=== PATIENT | male | born 1970 | race Caucasian/White ===

== ENCOUNTER 2017-10-17 03:39 | Inpatient (IN) | payer MEDICAID, OTHER ==
[~2017-10-17] VITALS: Ht 172.7 cm; Wt 62.2 kg
--- NOTE | 2017-10-17 03:45 | NUR ---
PT AA/O X4 COMPLAINING OF SOB X 2 WEEKS PROGRESSIVLEY GETTING WORSE. "I SMOKED MARIJUANA AND SLAMMED METH EARLIER TODAY." NASAL FLARING, ACCESSORY MUSCLE USE PRESENT. DIFFICULTY WITH 3 WORD SENTENCES. 88 PERCENT ON ROOM AIR. APPLICATION OF SIMPLE FACE MASK 6LPM. AWAITING MD ORDERS.
--- NOTE | 2017-10-17 03:52 | NUR ---
XRAY AT BEDSIDE
[2017-10-17] MEDS ORDERED: ALBUTEROL FS 2.5 MG/3 ML VIAL.NEB ONE (03:58)
[2017-10-17] MEDS ORDERED: FUROSEMIDE 40 MG/4 ML VIAL ONE (03:59)
[2017-10-17] MEDS ORDERED: FUROSEMIDE 40 MG/4 ML VIAL IV ONE (04:00)
[2017-10-17] MEDS ORDERED: IBUPROFEN 600 MG TABLET PO ONE ×2 (04:00)
[2017-10-17] MEDS ORDERED: ALBUTEROL FS 2.5 MG/3 ML VIAL.NEB CONTNEB ONE (04:00)
--- NOTE | 2017-10-17 04:01 | NUR ---
PT IS REC'ING A BREATHING TX.
[2017-10-17 04:16] LABS: ABG BASE EXCESS 3.4 mmol/L; ABG OXYGEN SATURATION 97.6 % (92.0-98.5); ABG PCO2 36.6 mmHg (35.0-45.0); ABG PH 7.483 (7.350-7.450); ABG PO2 107.5 mmHg (75.0-100.0); AaDO2 207.8 mmHg; COHb 1.4 % (0.5-1.5); MetHb 0.3 % (0.0-1.5); O2Hb 95.9 % (94.0-97.0); SITE, ABG Right Radial; VENT MODE, BG simple mask
[2017-10-17 04:27] LABS: CALCIUM, SERUM 7.5 mg/dL (8.5-10.1); CARBON DIOXIDE 29 mmol/L (21-32); CHLORIDE 103 mmol/L (98-107); CREATININE 0.7 mg/dL (0.6-1.3); GLUCOSE 121 mg/dL (74-106); POTASSIUM 3.5 mmol/L (3.5-5.1); SODIUM SERUM 136 mmol/L (136-145); UREA NITROGEN, BLOOD 10 mg/dL (7-18)
[2017-10-17 04:35] LABS: TROPONIN I < 0.017 ng/mL (0.00-0.056)
[2017-10-17 04:37] LABS: HEMATOCRIT 36 % (39-51); HEMOGLOBIN 12.3 g/dL (13.5-17.5); MEAN CORPUSCULAR HEMOGLOBIN 35 PG (26.0-33.0); MEAN CORPUSCULAR HGB CONC 34 g/dl (31.0-36.0); MEAN CORPUSCULAR VOLUME 104 fL (80-96); NEUTROPHILS % (AUTO) 53.2 % (43.0-81.0); PLATELET COUNT (AUTO) 151 /CMM (150-450); RDW COEFFICIENT OF VARIATION 17.2 (11.5-15.0)
[2017-10-17 04:38] LABS: BASOPHILS % (AUTO) 0.4 % (0.0-2.0); EOSINOPHILS % (AUTO) 2.5 % (0.0-6.0); LYMPHOCYTES % (AUTO) 30.4 % (20.0-44.0); MONOCYTES % (AUTO) 13.6 % (2.0-12.0); WHITE BLOOD COUNT (AUTO) 10.4 K/uL (4.3-11.0)
[2017-10-17 04:39] LABS: RED BLOOD CELL COUNT(AUTO) 3.51 MIL/uL (4.5-6.0)
[2017-10-17 04:40] LABS: INR 1.28 (0.87-1.13)
[2017-10-17 04:41] LABS: ALANINE AMINOTRANSFERASE 92 U/L (12-78); ALBUMIN 1.6 g/dL (3.4-5.0); ALKALINE PHOSPHATASE 119 U/L (46-116); ASPARTATE AMINOTRANSFERASE 121 U/L (15-37); B-TYPE NATRIURETIC PEPTIDE 134 PG/ML (0-125); BILIRUBIN,DIRECT 0.8 mg/dL (0.0-0.2); TOTAL PROTEIN, SERUM 6.7 g/dL (6.4-8.2)
--- NOTE | 2017-10-17 05:08 | NUR ---
PT PLACED ON NC AT 3LPM FROM SIMPLE FACE MASK AT 6LPM PER MD ORDERS. PT O2 SAT AT 95%
[2017-10-17] MEDS: CEFTRIAXONE 1GM BAG (ER ONLY) 1 GM/50 ML PIGGYBACK IV ONE ×2 (05:43→06:00)
[2017-10-17] MEDS ORDERED: LEVOFLOXACIN 750 MG /D5W 150ML 150 ML IV ONE (05:52)
[2017-10-17] MEDS ORDERED: CEFTRIAXONE 1GM BAG (ER ONLY) 50 ML IV ONE (05:52)
[2017-10-17] MEDS ORDERED: LEVOFLOXACIN 750 MG /D5W 150ML PIGGYBACK IV ONE (06:00)
--- NOTE | 2017-10-17 06:18 | NUR ---
REPORT GIVEN TO MOIRA GREGG.
[2017-10-17] MEDS ORDERED: ONDANSETRON HCL/PF 4 MG/2 ML VIAL IVP PRN (07:00)
--- NOTE | 2017-10-17 07:30 | NUR ---
SCOOP DRIVER OPENING NOTES RECEIVED REPORT FROM ECHO TECH NURSE. PT IS A NEW ADMISSION FROM ER VIA GURNEY. PT IS A/O X3, AFEBRILE. PT IS CURRENTLY HAVING SOB. PUT PT ON O2 @3/MIN VIA NC, SATURATING 94%. PUPILS ARE REACTIVE TO LIGHT. BILATERAL HAND LOCAL BULK DRIVER ARE STRONG AND EQUAL. US GUIDED THORACENTESIS HAS BEEN ORDERS FOR PLEURAL EFFUSION, WILL CONTINUE TO FOLLOW UP. ABDOMEN IS ROUND, SOFT AND NONDISTENDED. DENIES ANY BLADDER DISCOMFORT. IV SITE INTACT, FLUSHED. NO INFILTRATION NOTED. DRESSING KEPT CLEAN AND DRY. SAFETY MEASURES ARE IN PLACE. INSTRUCTED PT TO USE CALL LIGHT WHEN ASSISTANCE IS NEEDED, CALL LIGHT IS LEFT WITHIN REACH.
[2017-10-17 08:00] VITALS: BP 124/72
[2017-10-17] MEDS ORDERED: Potassium Chloride 20 MEQ in IV D5/0.45 NACL 1,000 ML IV PRN (08:00)
[2017-10-17] MEDS ORDERED: LIDOCAINE HCL/PF 1% 30 ML SDV ONE (08:40)
--- NOTE | 2017-10-17 08:45 | NUR ---
MIXER DIAMOND POWDER NOTES US GUIDED RIGHT THORACENTESIS DONE W/ 1.5L OUT. PT TOLERATED PROCEDURE WELL. STAT CHEST XRAY ORDERED.
[2017-10-17] MEDS: PANTOPRAZOLE 40 MG VIAL IV SCH (09:50)
--- NOTE | 2017-10-17 11:24 | NUR ---
Social service consult requested by JEANNETTE Hu for drug use. Pt. is a 47 year old male who was admitted to [facility] for pleural effusion. SW met with pt. bedside. Pt. is alert and oriented x 4. Pt. appeared tired but was cooperative with SW during the assessment. Pt. states he lives with his landlord [place] [address] [address] in [place]. [place] Pt's emergency contact is Madelaine Adler who can be reached at . Pt. is unemployed and receives [employer] and food stamps monthly. Pt. states he used methamphetamines two days ago because he wanted to go and get his pills but had no energy to do so and took the drug. Pt. states he had not used methamphetamines in a very long time and regrets using it. Pt. does use marijuana at times. Pt. denies drinking alcohol. Pt. declined drug treatment referrals the SW was offering. No other social service needs are requested at this time. SW is available, if needed.
[2017-10-17 12:00] VITALS: BP 112/68
--- NOTE | 2017-10-17 13:15 | NUR ---
MS RN NOTES US GUIDED PARACENTESIS WAS ORDERED. PT WAS PREPPED BUT UPON ULTRASOUND, THERE IS NOT ENOUGH FLUID TO REMOVE. DR. ALEXANDER MADE AWARE.
--- NOTE | 2017-10-17 14:20 | NUR ---
PACKING LINE WORKER NOTES D/C IV FLUIDS PER DR. ALEXANDER.
[2017-10-17 16:00] VITALS: BP 108/74
--- NOTE | 2017-10-17 18:34 | NUR ---
DIGITAL PRODUCT MANAGER CLOSING NOTES ALL DUE MEDS GIVEN, NEEDS MET AND ANTICIPATED. PT REMAINS A/O X3-4, AFEBRILE. RESPIRATIONS ARE EVEN AND UNLABORED. DENIES ANY PAIN AT THIS TIME, NO C/O N/V. TOLERATING O2 @3L/MIN VIA NC, SATURATING AT 93%. IV SITE INTACT, NO INFILTRATION NOTED. DRESSING KEPT CLEAN AND DRY. S/P THORACENTESIS, NO S/SX OF INFECTION TO SITE, DRESSING KEPT CLEAN AND DRY. INSTRUCTED PT TO USE CALL LIGHT WHEN ASSISTANCE IS NEEDED, CALL LIGHT IS LEFT WITHIN REACH. WILL SAFETY MEASURES ARE IN PLACE. WILL ENDORSE TO NEXT SHIFT FOR CONTINUITY OF CARE.
--- NOTE | 2017-10-17 19:20 | NUR ---
RN NOTES RECEIVED PT AWAKE, ON HIGH FOWLERS POSITION WITH O2 INHALATION AT 3LPM VIA NC AND TOLERATED WELL. PT ALERT AND ORIENTED X4, DENIES ANY PAIN AND DISCOMFORT THIS TIME. IV ACCESS ON FIGHT FOREARM PATENT AND INTACT. NOTED WITH ABDOMINAL DISTENTION AND EDEMA ON BLE. SAFETY MEASURES AND FALL PRECAUTION OBSERVED. WILL CONTINUE TO MONITOR PT.
[2017-10-17 20:00] VITALS: BP 120/81
[2017-10-17] MEDS: ALBUTEROL HALF STRENGTH 1.25 MG/3 ML VIAL.NEB NEB PRN (21:05)
[2017-10-17] MEDS: IPRATROPIUM NEB FS 0.5 MG/2.5 ML AMPUL.NEB NEB PRN (21:05)
[2017-10-17] MEDS: MORPHINE SULFATE INJ 2 MG/ML DISP.SYRIN IV PRN (21:09)
--- NOTE | 2017-10-17 21:09 | NUR ---
RN NOTES PT COMPLAIS OF SEVERE ABDOMINAL PAIN 01/10, MORPHINE GIVEN IV. WILL CONTINUE TO MONITOR PT.
[2017-10-17 22:00] VITALS: BP 120/81
[2017-10-18] VITALS: BP 134/83
[2017-10-18 04:16] VITALS: BP 121/80
[2017-10-18 06:20] LABS: BASOPHILS # (AUTO) 0.1 /CMM (0.0-0.2); EOSINOPHILS % (AUTO) 3.9 % (0.0-6.0); HEMATOCRIT 37 % (39-51); HEMOGLOBIN 12.7 g/dL (13.5-17.5); LYMPHOCYTES # (AUTO) 1.9 /CMM (0.8-4.8); LYMPHOCYTES % (AUTO) 26.7 % (20.0-44.0); MEAN CORPUSCULAR HEMOGLOBIN 35 PG (26.0-33.0); MEAN CORPUSCULAR HGB CONC 35 g/dl (31.0-36.0); MEAN CORPUSCULAR VOLUME 101 fL (80-96); MONOCYTES # (AUTO) 0.9 /CMM (0.1-1.30); MONOCYTES % (AUTO) 13.2 % (2.0-12.0); NEUTROPHILS # (AUTO) 3.8 /CMM (1.8-8.9); NEUTROPHILS % (AUTO) 55.2 % (43.0-81.0); PLATELET COUNT (AUTO) 125 /CMM (150-450); RDW COEFFICIENT OF VARIATION 15.9 (11.5-15.0); RED BLOOD CELL COUNT(AUTO) 3.62 MIL/uL (4.5-6.0)
--- NOTE | 2017-10-18 06:51 | NUR ---
RN NOTES PT SLEPT WELL OVERNIGHT, WITH O2 INHALATION AT 3LPM VIA NC AND TOLERATED WELL. TELE MONITOR READS SINUS RHYTHM WITH HEART RATE AT 72. VITAL SIGNS TAKEN ONCE AT 2000, PT DOESN'T WANT TO BE DISTURBED WHILE SLEEPING, REFUSED VITALS TO BE TAKEN AT 2400 AND 0400. PAIN CONTROLLED WITH CURRENT REGIMEN. SAFETY MEASURES AND FALL PRECAUTION OBSERVED. ALL NEEDS MET. WILL ENDORSE TO MORNING RN FOR CONTINUITY OF CARE.
[2017-10-18 07:06] LABS: CALCIUM, SERUM 7.2 mg/dL (8.5-10.1)
[2017-10-18 07:15] LABS: CREATININE 0.6 mg/dL (0.6-1.3)
--- NOTE | 2017-10-18 07:30 | NUR ---
DINING CHAIR SEAT CUSHION TRIMMER OPENING NOTE RECEIVED PATIENT IN BED, SLEEPING, EASILY AROUSED WITH VERBAL STIMULI, ORIENTED X4. ON 2 L O2 VIA NC. TOLERATING WELL. IN NO APPARENT DISTRESS OR DISCOMFORT AT THIS TIME, REPORTS MILD PAIN WHEN COUGHING BUT REFUSED PAIN MEDICATIONS FOR NOW UNTIL THE PAIN IS NOT TOLERABLE. PATIENT ON TELE MONITORING WITH SINUS RHYTHM HR OF 72. PATIENT HAS BATHROOM PRIVILEGES WITH ASSISTANCE. RIGHT FA IVC 18G SL. PATENT AND INTACT. PATIENT KEPT CLEAN AND COMFORTABLE, ALL NEEDS ATTENDED, SAFETY MEASURES IN PLACE, BED IN LOW LOCKED POSITION, SIDE RAILS UP X2, CALL LIGHT WITHIN EASY REACH. WILL CONTINUE TO MONITOR.
[2017-10-18 08:00] VITALS: BP 124/80
[2017-10-18] MEDS: PANTOPRAZOLE 40 MG VIAL IV SCH (09:28)
[2017-10-18] MEDS: MORPHINE SULFATE INJ 2 MG/ML DISP.SYRIN IV PRN ×3 (09:29→23:32)
[2017-10-18] MEDS ORDERED: OMEP20TA20 PO (09:33)
[2017-10-18] MEDS ORDERED: FURO-145 PO (09:33)
[2017-10-18] MEDS ORDERED: FUROSEMIDE 40 MG/4 ML VIAL IV SCH (10:30)
[2017-10-18] MEDS: FUROSEMIDE 40 MG/4 ML VIAL IV SCH (11:24)
[2017-10-18 16:00] VITALS: BP 120/88
[2017-10-18] MEDS: ALBUTEROL HALF STRENGTH 1.25 MG/3 ML VIAL.NEB NEB PRN ×2 (16:26→20:34)
--- NOTE | 2017-10-18 19:01 | NUR ---
MS RN CLOSING NOTE PATIENT IN BED, SLEEPING, EASILY AROUSED WITH VERBAL STIMULI, ORIENTED X4. ON 2 L O2 VIA NC. TOLERATING WELL. IN NO APPARENT DISTRESS OR DISCOMFORT AT THIS TIME, RESPIRATIONS EVEN AND UNLABORED. ABLE TO VERBALIZE NEEDS. PATIENT ON MEDSURG STATUS, PATIENT HAS BATHROOM PRIVILEGES WITH ASSISTANCE. RIGHT FA IVC 18G SL. PATENT AND INTACT. PATIENT KEPT CLEAN AND COMFORTABLE, PAIN CONTROLLED WITH PAIN MEDICATIONS. ALL NEEDS ATTENDED, SAFETY MEASURES IN PLACE, BED IN LOW LOCKED POSITION, SIDE RAILS UP X2, CALL LIGHT WITHIN EASY REACH. WILL ENDORSE TO PM NURSE FOR STEFFI.
[2017-10-18 20:00] VITALS: BP 118/77
[2017-10-18] MEDS: IPRATROPIUM NEB FS 0.5 MG/2.5 ML AMPUL.NEB NEB PRN (20:34)
--- NOTE | 2017-10-18 20:34 | NUR ---
MS FILIBERTO INITIAL NOTES RECEIVED PT SLEEPING COMFORTABLY IN BED , BUT AROUSE TO TOUCH. DENIES ANY PAIN OR ANY DISCOMFORT . NO SIGNS OF ANY ACUTE DISTRESS .SKIN WARM AND DRY TO TOUCH. KEPT HIM WARM AND COMFORTABLE AT ALL TIMES. PLACE CALL LIGHT AT REACH. WILL CONTINUE TO MONITOR.
[2017-10-18] MEDS: MUPIROCIN OINT 2% 22 GM TUBE SCH (22:11)
[2017-10-19 06:22] LABS: BASOPHILS % (AUTO) 0.3 % (0.0-2.0); EOSINOPHILS % (AUTO) 4.2 % (0.0-6.0); HEMATOCRIT 36 % (39-51); HEMOGLOBIN 12.2 g/dL (13.5-17.5); LYMPHOCYTES # (AUTO) 2.3 /CMM (0.8-4.8); LYMPHOCYTES % (AUTO) 31.3 % (20.0-44.0); MEAN CORPUSCULAR HEMOGLOBIN 36 PG (26.0-33.0); MEAN CORPUSCULAR HGB CONC 34 g/dl (31.0-36.0); MEAN CORPUSCULAR VOLUME 104 fL (80-96); MONOCYTES # (AUTO) 0.9 /CMM (0.1-1.30); MONOCYTES % (AUTO) 12.5 % (2.0-12.0); NEUTROPHILS # (AUTO) 3.8 /CMM (1.8-8.9); NEUTROPHILS % (AUTO) 51.7 % (43.0-81.0); PLATELET COUNT (AUTO) 140 /CMM (150-450); RDW COEFFICIENT OF VARIATION 16.6 (11.5-15.0); RED BLOOD CELL COUNT(AUTO) 3.42 MIL/uL (4.5-6.0); WHITE BLOOD COUNT (AUTO) 7.4 K/uL (4.3-11.0)
[2017-10-19 06:44] LABS: CALCIUM, SERUM 7.1 mg/dL (8.5-10.1); CREATININE 0.6 mg/dL (0.6-1.3); POTASSIUM 4.1 mmol/L (3.5-5.1)
--- NOTE | 2017-10-19 07:30 | NUR ---
MS WELDER APPRENTICE GAS CLOSING NOTES PT RESTING COMFORTABLY IN BED WITHOUT ANY ACUTE DISTRESS NOTED. STABLE JC THE NIGHT AND SLEPT WELL. RESPIRATION EVEN AND NON-LABORED . ALL NEEDS MET. DENIES ANY PAIN OR ANY DISCOMFORT. KEPT HIM WARM AND COMFORTABLE AT ALL TIMES. WILL CONTINUE MONITORING ENDORSE TO AM NURSE FOR CONTINUITY OF CARE.
[2017-10-19 08:00] VITALS: BP 115/77
--- NOTE | 2017-10-19 08:00 | NUR ---
MS RN OPENING NOTES Received patient awake on bed in high Schilling's position with O2 inhalation via nasal cannula @ 2LPM saturation @ 94%. A/O x4, ambulatory independently, with toilet priviledges. With IV line @ RFA G18 SL patent and intact without s/sx of infection noted. With complain of abdominal pain 09/10.V/S T-98.1F, ID-80bpm, RR-18cpm, BP-115/77mmHg. Administered Morphine as ordered, instructed patient to reposition self q 2h while awake and to do diversional activities for pain. Kept clean, dry and comfortable. All needs attended. Call light within easy reach. Will continue to monitor.
[2017-10-19] MEDS: MORPHINE SULFATE INJ 2 MG/ML DISP.SYRIN IV PRN ×3 (08:01→17:33)
[2017-10-19] MEDS: FUROSEMIDE 40 MG/4 ML VIAL IV SCH (08:02)
[2017-10-19] MEDS: PANTOPRAZOLE 40 MG VIAL IV SCH (08:02)
[2017-10-19] MEDS: MUPIROCIN OINT 2% 22 GM TUBE SCH ×2 (09:03→21:43)
--- NOTE | 2017-10-19 12:30 | NUR ---
MS RN Notes 1230H Patient complained of lower abdominal pain 11/10. Repositioned patient, due meds given as order.
[2017-10-19 16:00] VITALS: BP 98/62
--- NOTE | 2017-10-19 17:55 | NUR ---
MS RN Notes 1730H Patient claimed to have a stabbing pain on his lower abdomen and complaint of dyspnea. Noted with shallow respiration, @22cpm, O2 nasal cannula not in place. Assisted patient to reposition comfortably to Schilling's position. Due pain meds given as ordered. Secured O2 nasal cannula. Patient still claimed difficult to breath, RT notified over the phone - coming to administer due meds as ordered.
[2017-10-19] MEDS: IPRATROPIUM NEB FS 0.5 MG/2.5 ML AMPUL.NEB NEB PRN (17:59)
[2017-10-19] MEDS: ALBUTEROL HALF STRENGTH 1.25 MG/3 ML VIAL.NEB NEB PRN (17:59)
--- NOTE | 2017-10-19 18:45 | NUR ---
MS RN CLOSING NOTES Patient is asleep on bed in Schilling's position with O2 inhalation via nasal cannula @ 2LPM saturating at 98%. With patent IV line @RFA G#18 SL. Patient was medicated for pain and breathing treatment for SOB/dyspnea administered by RT. Patient was able to sleep well of at least 4hrs after each pain med given as ordered. All patient's needs were attended and anticipated. No new complaints made at this time. Endorsed to the next shift for continuity of care.
--- NOTE | 2017-10-19 19:30 | NUR ---
MS NET APPLICATION SUPPORT SPECIALIST INITIAL NOTES RECEIVED REPORT FROM AM NURSE SHAYNE AND CHECKED THE PT . HE'S RESTING AT THIS TIME BUT AROUSE TO TOUCH, NO SOB NOTED WITH O2 AT 2LITERS VIA NC. BREATHING EVEN AND NON-LABORED NOT IN AND ANY ACUTE DISTRESS NOTED. KEPT HIM WARM AND COMFORTABLE AT ALL TIMES. DENIES ANY PAIN AT THIS TIME. ON CONTACT ISOLATION IMPLEMENTED AND OBSERVED. WILL CONTINUE MONITORING. PLACE CALL LIGHT AT REACH.
[2017-10-19 20:00] VITALS: BP 123/68
--- NOTE | 2017-10-20 00:01 | NUR ---
MS RN NOTES PAIN MANAGEMENT C/O ABDOMINAL PAIN 8/10 ON PAIN SCALE,MORPHINE 2MG IVP GIVEN ORDERED FOR PAIN MANAGEMENT.WILL MONITOR FOR RELIEF.
--- NOTE | 2017-10-20 06:57 | NUR ---
MS ASSOCIATE FACULTY CLOSING NOTES PATIENT BACK TO REST AFTER SPONGE BATH RENDERED, NO SIGNS OF ANY ACUTE DISTRESS NOTE. SLEPT WELL AND STABLE JC THE NIGHT. KEPT HIM WARM AND COMFORTABLE AT ALL TIMES. ON ISOLATION PRECAUTION IMPLEMENTED. AND OBSERVED. WILL ENDORSE TO AM NURSE FOR CONTINUITY OF CARE.PLACE CALL LIGHT AT REACH.
[2017-10-20 07:13] LABS: BASOPHILS % (AUTO) 0.5 % (0.0-2.0); EOSINOPHILS % (AUTO) 4.9 % (0.0-6.0); HEMATOCRIT 36 % (39-51); HEMOGLOBIN 12.3 g/dL (13.5-17.5); LYMPHOCYTES # (AUTO) 2.4 /CMM (0.8-4.8); LYMPHOCYTES % (AUTO) 34.3 % (20.0-44.0); MEAN CORPUSCULAR HEMOGLOBIN 35 PG (26.0-33.0); MEAN CORPUSCULAR HGB CONC 34 g/dl (31.0-36.0); MEAN CORPUSCULAR VOLUME 104 fL (80-96); NEUTROPHILS # (AUTO) 3.2 /CMM (1.8-8.9); NEUTROPHILS % (AUTO) 46.3 % (43.0-81.0); PLATELET COUNT (AUTO) 132 /CMM (150-450); RDW COEFFICIENT OF VARIATION 16.6 (11.5-15.0); RED BLOOD CELL COUNT(AUTO) 3.47 MIL/uL (4.5-6.0); WHITE BLOOD COUNT (AUTO) 6.9 K/uL (4.3-11.0)
[2017-10-20 07:26] LABS: BILIRUBIN,TOTAL 1.4 mg/dL (0.2-1.0); CREATININE 0.6 mg/dL (0.6-1.3); POTASSIUM 3.7 mmol/L (3.5-5.1); TOTAL PROTEIN, SERUM 6.2 g/dL (6.4-8.2)
--- NOTE | 2017-10-20 07:30 | NUR ---
MS RN OPENING NOTES Received patient asleep on semi-viveros's position. On O2 inhalation via NC @2LPM. No SOB or respiratory distress noted. With IV line @ RFA G18 SL patent and intact without s/sx of infection noted. Still on enhanced contact precaution. No s/sx of pain noted at this time. Ensure call light within easy reach. Will continue to monitor.
[2017-10-20 07:40] LABS: ALBUMIN 1.4 g/dL (3.4-5.0)
[2017-10-20 08:00] VITALS: BP 117/85
[2017-10-20] MEDS: PANTOPRAZOLE 40 MG VIAL IV SCH (08:07)
[2017-10-20] MEDS: FUROSEMIDE 40 MG/4 ML VIAL IV SCH (08:07)
[2017-10-20] MEDS: MORPHINE SULFATE INJ 2 MG/ML DISP.SYRIN IV PRN ×5 (08:08→22:09)
[2017-10-20] MEDS: MUPIROCIN OINT 2% 22 GM TUBE SCH ×2 (09:31→20:13)
[2017-10-20] MEDS ORDERED: FEE PK DOSING 1 MIN EA MC ONE (11:58)
[2017-10-20] MEDS: ALBUMIN 25% 25 GM in PREMIX 1 EA IV SCH ×2 (12:47→23:13)
[2017-10-20] MEDS: VANCOMYCIN 1 GM in IV NS 0.9% 250 ML IV SCH ×2 (13:24→20:13)
[2017-10-20] MEDS: ALBUTEROL HALF STRENGTH 1.25 MG/3 ML VIAL.NEB NEB PRN ×2 (15:08→21:28)
[2017-10-20] MEDS: IPRATROPIUM NEB FS 0.5 MG/2.5 ML AMPUL.NEB NEB PRN ×2 (15:08→21:28)
[2017-10-20 16:00] VITALS: BP 120/78
--- NOTE | 2017-10-20 16:00 | NUR ---
MS RN NOTES Received report from diagnostic labs of critical low albumin 1.4. Attending physican were notified, new order noted and carried out. Started on Albumin 25% as ordered. For ultrasound guided thoracentesis right lung, informed consent signed by the patient.
--- NOTE | 2017-10-20 18:49 | NUR ---
MS RN CLOSING NOTES Patient asleep on bed on Schilling's position with O2 inhalation at 2LPM via nasal cannula. On enhanced contact precaution observed by all healthcare providers. All due meds given as ordered, no ASE noted. Performed ADLs with very minimal assistance. Pain is managed with medication. Afebrile the whole shift, no new complaints made. Pending right lung thoracentesis. Endorsed to next shift for continuity of care.
--- NOTE | 2017-10-20 19:30 | NUR ---
MS RN OPENING NOTES: RECEIVED PT ON BED AND IS ON2LPM VIA NC. PT ASLEEP AT THIS TIME. PT HAS IV AND IS CURRENTLY S/L. NO SOB NOTED. NO S/S OF DISTRESS NOTED. CALL LIGHT WITHIN PT'S REACH. BED KEPT IN LOW, LOCKED POSITION, AND SIDE RAILS X 2UP. WILL CONTINUE TO MONITOR PT.
[2017-10-20 20:00] VITALS: BP 125/71
--- NOTE | 2017-10-20 22:19 | NUR ---
MS RN NOTES: PT SAYING THAT HIS MORPHINE IS NOT WORKING. HE EXPLAINED THAT HE USUALLY GETS A WARM FEELING AND TIRED. EXPLAINED TO PT THAT IT HAS ONLY BEEN 10 MINUTES AND WE WILL GIVE IT SOME TIME FOR THE MEDICATION TO WORK. WILL CONTINUE TO MONITOR.
--- NOTE | 2017-10-20 22:56 | NUR ---
MS RN OPENING NOTES: RECEIVING NIGHT RN RECEIVED PT ON BED ASLEEP STABLE, ON O2LPM VIA NC 02 SAT AT 98% NO SOB NOTED. NO S/S OF DISTRESS NOTED. CALL LIGHT WITHIN PT'S REACH. BED KEPT IN LOW, LOCKED POSITION, AND SIDE RAILS X 2 UP. WILL CONTINUE TO MONITOR PT.
--- NOTE | 2017-10-20 23:16 | NUR ---
MS RN CLOSING NOTES: ALL NEEDS WERE ATTENDED AND ANTICIPATED FOR. IV REMAINS IN TACT AND IS CURRENTLY S/L. PT ASLEEP AT THIS TIME. PT ON 2LPM VIA NC. CALL LIGHT WITHIN PT'S REACH. BED KEPT IN LOW, LOCKED POSITION, AND SIDE RAILS X 2UP. ENDORSED TO RN, MARIE Ontiveros, FOR STEFFI.
[2017-10-21] MEDS: VANCOMYCIN 1 GM in IV NS 0.9% 250 ML IV SCH (04:44)
--- NOTE | 2017-10-21 06:23 | NUR ---
MS RN CLOSING NOTES PT COMFORTABLY ASLEEP AND EASILY AWAKEN, A/O X 3, STABLE CONDITION. RESPIRATION EVEN AND UNLABORED. KEPT CLEAN AND DRY AND COMFORTABLE, ALL NURSING CARE RENDERED. NEEDS ATTENDED AND ANTICIPATED, GOOD SKIN CARE PROVIDED. ON LOW BED AT ALL TIMES TO ENSURE SAFETY. SAFE HAZARD FREE ENVIRONMENT PROVIDED. NO COMPLAINS OF PAIN. CALL LIGHT WITHIN EASY TO REACH. WILL ENDORSE NEXT SHIFT CONTINUITY OF CARE.
[2017-10-21 07:10] LABS: BASOPHILS % (AUTO) 0.4 % (0.0-2.0); EOSINOPHILS % (AUTO) 4.9 % (0.0-6.0); HEMATOCRIT 34 % (39-51); HEMOGLOBIN 11.4 g/dL (13.5-17.5); LYMPHOCYTES # (AUTO) 2.1 /CMM (0.8-4.8); MEAN CORPUSCULAR HEMOGLOBIN 35 PG (26.0-33.0); MEAN CORPUSCULAR HGB CONC 34 g/dl (31.0-36.0); MEAN CORPUSCULAR VOLUME 103 fL (80-96); MONOCYTES # (AUTO) 0.9 /CMM (0.1-1.30); MONOCYTES % (AUTO) 14.5 % (2.0-12.0); NEUTROPHILS # (AUTO) 2.9 /CMM (1.8-8.9); NEUTROPHILS % (AUTO) 46.2 % (43.0-81.0); PLATELET COUNT (AUTO) 111 /CMM (150-450); RDW COEFFICIENT OF VARIATION 16.6 (11.5-15.0); RED BLOOD CELL COUNT(AUTO) 3.28 MIL/uL (4.5-6.0); WHITE BLOOD COUNT (AUTO) 6.2 K/uL (4.3-11.0)
[2017-10-21 07:40] LABS: ALBUMIN 1.9 g/dL (3.4-5.0); CREATININE 0.6 mg/dL (0.6-1.3); POTASSIUM 3.6 mmol/L (3.5-5.1)
--- NOTE | 2017-10-21 07:42 | NUR ---
MS RN OPENING NOTE RECEIVED BEDSIDE REPORT AT THE BEDSIDE.CONTACT ISOLATION MRSA NARES. PATIENT IS A/O X4, AWAKE AND RESPONSIVE IN BED. BED IS LOCKED IN LOWEST POSITION, SIDE RAILS UP X2, BED ALARM IS ON. PATIENT IS AMBULATORY AND ORIENTED TO OWN ABILITIES. CALL LIGHT WITHIN REACH. EDUCATED THE PATIENT TO USE THE CALL LIGHT TO CALL FOR ASSISTANCE. PATIENT VERBALIZED UNDERSTANDING. DENIES PAIN/DISCOMFORT AT THIS TIME. WILL CONTINUE TO ASSESS/MONITOR THROUGHOUT THE SHIFT.
[2017-10-21 08:00] VITALS: BP 127/84
[2017-10-21] MEDS: MUPIROCIN OINT 2% 22 GM TUBE SCH ×2 (08:36→21:47)
[2017-10-21] MEDS: FUROSEMIDE 40 MG/4 ML VIAL IV SCH (08:36)
[2017-10-21] MEDS: PANTOPRAZOLE 40 MG VIAL IV SCH (08:36)
[2017-10-21] MEDS: MORPHINE SULFATE INJ 2 MG/ML DISP.SYRIN IV PRN ×4 (08:37→21:43)
--- NOTE | 2017-10-21 08:37 | NUR ---
patient complained of severe abdominal pain s/t "fullness". Morphine is administered as prescribed. Spoke to Dhara from Ultrasound. Patient is scheduled to have thoracentesis at the bedside. Awaiting for the radiologist. Concert obtained. Dhara informed.
[2017-10-21] MEDS ORDERED: LIDOCAINE HCL/PF 1% 30 ML SDV ONE (09:13)
--- NOTE | 2017-10-21 12:36 | NUR ---
reports pain in abdomen. Dr Mao informed. Morphine administered as ordered.
--- NOTE | 2017-10-21 13:30 | NUR ---
PER PHARMACY VANCO DOSE WILL BE CHANGED. WAITING FOR NEW DOSE VANCO
--- NOTE | 2017-10-21 14:18 | NUR ---
Thoracentesis completed. STAT chest Xray ordered by radiologist.
[2017-10-21 16:00] VITALS: BP 124/84
[2017-10-21] MEDS: VANCOMYCIN 1.25 GM in IV D5W 500 ML IV SCH (16:40)
[2017-10-21] MEDS: GUAIFENESIN/CODEINE 10 ML UDC PO PRN (16:43)
--- NOTE | 2017-10-21 18:47 | NUR ---
RECEIVED VERBAL ORDER FOR KUB FROM DR ALEXANDER. READ BACK AND VERIFIED. RADIOLOGY AND PATIENT INFORMED.
--- NOTE | 2017-10-21 19:00 | NUR ---
MS RN OPENING NOTE RECEIVE PATIENT AWAKE IN BED, A/O X3, 2LPM VIA NC 02 SAT 99% NO C/O OF PAIN. NO SOB OR DISTRESS NOTED, CALL LIGHT WITHIN REACH. SAFETY MEASURES IMPLEMENTED. WILL CONTINUE TO MONITOR THROUGHOUT SHIFT.
--- NOTE | 2017-10-21 19:07 | NUR ---
MS RN CLOSING NOTE GAVE BEDSIDE REPORT AT THE BEDSIDE.CONTACT ISOLATION MRSA NARES. PATIENT IS A/O X4, AWAKE AND RESPONSIVE IN BED. BED IS LOCKED IN LOWEST POSITION, SIDE RAILS UP X2, BED ALARM IS ON. PATIENT IS AMBULATORY AND ORIENTED TO OWN ABILITIES. CALL LIGHT WITHIN REACH. PATIENT AWAITING KUB. REPORTS PAIN IN RLQ. DR ALEXANDER AWARE. ENDORSED TO THE HR ASSISTANT NURSE FOR STEFFI.
[2017-10-21 20:00] VITALS: BP 125/83
[2017-10-22] MEDS: VANCOMYCIN 1.25 GM in IV D5W 500 ML IV SCH ×4 (00:35→23:46)
[2017-10-22] MEDS: ACETAMINOPHEN 650 MG/SUPP.RECT RC PRN (01:31)
[2017-10-22] MEDS: MORPHINE SULFATE INJ 2 MG/ML DISP.SYRIN IV PRN ×6 (02:55→22:06)
--- NOTE | 2017-10-22 06:22 | NUR ---
MS RN CLOSING NOTES PT COMFORTABLY ASLEEP AND EASILY AWAKEN, A/O X 3, STABLE CONDITION. RESPIRATION EVEN AND UNLABORED. KEPT CLEAN AND DRY AND COMFORTABLE, ALL NURSING CARE RENDERED. NEEDS ATTENDED AND ANTICIPATED, NO COMPLAINS OF PAIN/CHEST PAIN. ON LOW BED AT ALL TIMES TO ENSURE SAFETY. SAFE HAZARD FREE ENVIRONMENT PROVIDED. CALL LIGHT WITHIN EASY TO REACH. WILL ENDORSE NEXT SHIFT CONTINUITY OF CARE.
--- NOTE | 2017-10-22 07:31 | NUR ---
RN OPENING NOTES RECEIVE PATIENT AWAKE IN BED, A/O X3, 2LPM VIA NC 02 SAT 99%. NO C/O OF PAIN. NO SOB OR DISTRESS NOTED. IV SITE INTACT AND PATENT. KEPT PATIENT SAFE AND COMFORTABLE. SAFETY MEASURES IMPLEMENTED. BED IN LOW/LOCKED POSITION, SIDERAILS UPX2, CALL LIGHT IN REACH. WILL CONTINUE TO MONITOR THROUGHOUT SHIFT.
[2017-10-22 08:00] VITALS: BP 106/67
[2017-10-22 08:00] LABS: BASOPHILS % (AUTO) 0.4 % (0.0-2.0); EOSINOPHILS % (AUTO) 5.4 % (0.0-6.0); HEMATOCRIT 35 % (39-51); HEMOGLOBIN 11.8 g/dL (13.5-17.5); LYMPHOCYTES # (AUTO) 2.8 /CMM (0.8-4.8); LYMPHOCYTES % (AUTO) 32.3 % (20.0-44.0); MEAN CORPUSCULAR HEMOGLOBIN 35 PG (26.0-33.0); MEAN CORPUSCULAR HGB CONC 34 g/dl (31.0-36.0); MEAN CORPUSCULAR VOLUME 104 fL (80-96); MONOCYTES % (AUTO) 11.1 % (2.0-12.0); NEUTROPHILS # (AUTO) 4.4 /CMM (1.8-8.9); NEUTROPHILS % (AUTO) 50.8 % (43.0-81.0); PLATELET COUNT (AUTO) 111 /CMM (150-450); RDW COEFFICIENT OF VARIATION 16.4 (11.5-15.0); RED BLOOD CELL COUNT(AUTO) 3.38 MIL/uL (4.5-6.0); WHITE BLOOD COUNT (AUTO) 8.7 K/uL (4.3-11.0)
[2017-10-22 08:03] LABS: CALCIUM, SERUM 7.6 mg/dL (8.5-10.1); CREATININE 0.6 mg/dL (0.6-1.3); POTASSIUM 3.4 mmol/L (3.5-5.1)
[2017-10-22] MEDS: FUROSEMIDE 40 MG/4 ML VIAL IV SCH (08:40)
[2017-10-22] MEDS: PANTOPRAZOLE 40 MG VIAL IV SCH (08:40)
[2017-10-22] MEDS: MUPIROCIN OINT 2% 22 GM TUBE SCH ×2 (08:42→21:02)
--- NOTE | 2017-10-22 10:12 | NUR ---
RN NOTES DR ALEXANDER AT BEDSIDE TALKING TO PATIENT. NEW ORDER TO CHANGE FREQUENCY OF MORPHINE FROM Q4HR TO Q3HR.
[2017-10-22] MEDS ORDERED: POTASSIUM CHLORIDE 20 MEQ TAB.PRT.SR PO SCH (10:30)
[2017-10-22] MEDS ORDERED: MAGNESIUM OXIDE 400 MG TABLET PO ONE (10:30)
[2017-10-22 16:00] VITALS: BP 118/73
--- NOTE | 2017-10-22 19:30 | NUR ---
RN CLOSING NOTES PATIENT IN STABLE CONDITION. ALL NEEDS ATTENDED AND PROVIDED. KEPT PATIENT SAFE AND COMFORTABLE. BED IN LOW LOCKED POSITION, SIDERAILS UPX2, CALL LIGHT IN REACH. ENDORSED TO NIGHT RN FOR STEFFI.
[2017-10-22 20:00] VITALS: BP 136/77
--- NOTE | 2017-10-22 20:11 | NUR ---
MS RN OPENING NOTE RECEIVE PATIENT AWAKE ALERT IN BED, A/O X3, 2LPM VIA NC 02 SAT 99% NO C/O OF PAIN. NO SOB OR DISTRESS NOTED, CALL LIGHT WITHIN REACH. SAFETY MEASURES IMPLEMENTED. WILL CONTINUE TO MONITOR THROUGHOUT SHIFT.
[2017-10-22] MEDS: IPRATROPIUM NEB FS 0.5 MG/2.5 ML AMPUL.NEB NEB PRN (20:16)
[2017-10-22] MEDS: ALBUTEROL HALF STRENGTH 1.25 MG/3 ML VIAL.NEB NEB PRN (20:16)
[2017-10-22 20:32] VITALS: BP 136/77
[2017-10-22 22:06] VITALS: BP 135/76
[2017-10-23 02:05] VITALS: BP 132/74
[2017-10-23] MEDS: MORPHINE SULFATE INJ 2 MG/ML DISP.SYRIN IV PRN ×7 (02:05→22:46)
[2017-10-23] MEDS: IPRATROPIUM NEB FS 0.5 MG/2.5 ML AMPUL.NEB NEB PRN ×2 (04:14→19:01)
[2017-10-23] MEDS: ALBUTEROL HALF STRENGTH 1.25 MG/3 ML VIAL.NEB NEB PRN ×2 (04:14→19:01)
[2017-10-23 05:08] VITALS: BP 130/70
--- NOTE | 2017-10-23 06:33 | NUR ---
MS RN CLOSING NOTES PT COMFORTABLY RESTING AT THIS TIME , A/O X 3, STABLE CONDITION. RESPIRATION EVEN AND UNLABORED. KEPT CLEAN AND DRY AND COMFORTABLE, ALL NURSING CARE GIVEN. NEEDS ATTENDED AND ANTICIPATED, DENIES ANY DISCOMFORT AT THI TIME. SAFE HAZARD FREE ENVIRONMENT PROVIDED. CALL LIGHT WITHIN EASY TO REACH. WILL ENDORSE NEXT SHIFT CONTINUITY OF CARE.
[2017-10-23 07:03] LABS: BASOPHILS % (AUTO) 0.4 % (0.0-2.0); EOSINOPHILS % (AUTO) 6.2 % (0.0-6.0); HEMATOCRIT 34 % (39-51); HEMOGLOBIN 11.4 g/dL (13.5-17.5); LYMPHOCYTES # (AUTO) 2.5 /CMM (0.8-4.8); LYMPHOCYTES % (AUTO) 31.3 % (20.0-44.0); MEAN CORPUSCULAR HEMOGLOBIN 35 PG (26.0-33.0); MEAN CORPUSCULAR HGB CONC 34 g/dl (31.0-36.0); MEAN CORPUSCULAR VOLUME 104 fL (80-96); MONOCYTES % (AUTO) 12.9 % (2.0-12.0); NEUTROPHILS # (AUTO) 3.9 /CMM (1.8-8.9); NEUTROPHILS % (AUTO) 49.2 % (43.0-81.0); PLATELET COUNT (AUTO) 103 /CMM (150-450); RDW COEFFICIENT OF VARIATION 16.4 (11.5-15.0); RED BLOOD CELL COUNT(AUTO) 3.24 MIL/uL (4.5-6.0); WHITE BLOOD COUNT (AUTO) 7.9 K/uL (4.3-11.0)
[2017-10-23 07:12] LABS: ALBUMIN 1.7 g/dL (3.4-5.0); MAGNESIUM 1.9 mg/dL (1.8-2.4)
[2017-10-23 07:23] LABS: CALCIUM, SERUM 7.3 mg/dL (8.5-10.1); CREATININE 0.5 mg/dL (0.6-1.3); POTASSIUM 3.7 mmol/L (3.5-5.1)
--- NOTE | 2017-10-23 07:25 | NUR ---
RN OPENING NOTES RECEIVED PT. IN BED SLEEPING. BREATHING UNLABORED, AND EVENLY ON ROOM AIR. NO S/S OF ACUTE DISTRESS. BED IS IN LOWEST, AND LOCKED POSITION. 2 SIDE RAILS UP, AND CALL LIGHT WITHIN REACH. ALL NEEDS MET. WILL CONTINUE TO ASSESS AND MONITOR.
[2017-10-23 08:00] VITALS: BP 115/69
[2017-10-23] MEDS: VANCOMYCIN 1.25 GM in IV D5W 500 ML IV SCH ×2 (08:39→18:28)
[2017-10-23] MEDS: MUPIROCIN OINT 2% 22 GM TUBE SCH ×2 (08:40→21:40)
[2017-10-23] MEDS: PANTOPRAZOLE 40 MG VIAL IV SCH (09:49)
[2017-10-23] MEDS: FUROSEMIDE 40 MG/4 ML VIAL IV SCH (09:49)
[2017-10-23] MEDS: GUAIFENESIN/CODEINE 10 ML UDC PO PRN (10:12)
[2017-10-23] MEDS: ALBUMIN 25% 25 GM in PREMIX 1 EA IV SCH ×2 (13:17→21:42)
--- NOTE | 2017-10-23 18:30 | NUR ---
PT. HAD AN EPISODE OF SOB, AND REPORTED DIFFICULTY BREATHING. PT. HAS S/S OF RESPIRATORY DISTRESS. PT. REFUSED OXYGEN VIA NASAL CANNULA, WAS COUGHING CONTINUOUSLY. PT. REPORTED FEELING HOT, AND A FAN WAS TURNED ON. PT. PULLED OUT HIS IV. OXYGEN SATURATION WAS MEASURED PT. WAS SATURATING ABOVE 90% -98%. RESPIRATORY THERAPIST WAS CALLED STAT TO ASSESS PT. FOR A BREATHING TREATMENT. PT. STARTED TO RESPOND WELL TO THE FAN, AFTER 5 MINUTES COUGHING WAS DECREASED, AND PT. REPORTED HE WAS BREATHING WITH LESS DIFFICULTY AND AGREED TO HAVE NASAL CANNULA ON. RT WAS AT THE BEDSIDE TO ASSESS PT. AND NEW IV WAS STARTED ON LEFT WRIST GAUGE 22. IV ANTIBIOTICS WERE RESTARTED.
--- NOTE | 2017-10-23 19:30 | NUR ---
RN CLOSING NOTES PT. IS IN BED WITH HEAD OF BED UP A&OX4. BREATHING UNLABORED, AND EVENLY ON OXYGEN AT 2L/MIN VIA NASAL CANNULA. NO S/S OF ACUTE DISTRESS. IV ANTIBIOTICS ARE RUNNING. BED IS IN LOWEST, AND LOCKED POSITION. 2 SIDE RAILS UP, AND CALL LIGHT WITHIN REACH. ALL NEEDS MET. WILL ENDORSE REPORT.
--- NOTE | 2017-10-23 19:50 | NUR ---
RN MS NOTES NOTED IV ATB NOT RUNNING AT THIS TIME, WILL CONTINUE TO INFUSE DOSE.
--- NOTE | 2017-10-23 19:50 | NUR ---
MOIRA MS NOTES RECEIVED PATIENT IN BED AWAKE ALERT AND ORIENTED X 4, ABLE TO MAKE NEEDS KNOWN, RESPIRATIONS EVEN AND UNLABORED WITH EQUAL RISE AND FALL CHEST, DENIES SOB AT THIS TIME ON O2 2L VIA NC. DENIES ANY PAIN OR DISCOMFORT AT THIS TIME, IV SITE TO LEFT WRIST #22 INTACT AND PATENT, NO REDNESS , NO INFILTRATION PRESENT. URINAL AT BEDSIDE, FLUIDS OFFERED TOLERATED, ORIENTED TO STAFF AND CALL LIGHT , CALL LIGHT KEPT WITHIN REACH, ALL NEEDS ATTENDED AT THIS TIME, WILL CONTINUE TO MONITOR. Addendum: 10/24/17 at 0254 by JOANNA WYATT RN MOIRA MS OPENING NOTES
[2017-10-23] MEDS: ACETAMINOPHEN 650 MG/SUPP.RECT RC PRN (19:58)
--- NOTE | 2017-10-23 19:58 | NUR ---
rn ms notes patient complaint of headache and requesting for pain medication rectally, prn tylenol suppository given will continue to monitor for effectiveness
[2017-10-23 20:00] VITALS: BP 126/74
--- NOTE | 2017-10-23 21:42 | NUR ---
RN MS NOTES IV ATB STOPPED TO INFUSE ALBUMIN ORDERED. NOTED PATIENT DID NOT RECEIVE ENTIRE DOSE, NOTED RECEIVED PARTIAL DOSE, WILL CONTINUE WITH NEXT SCHEDULE ATB DOSE ORDERED.
--- NOTE | 2017-10-23 22:46 | NUR ---
RN MS NOTES PATIENT COMPLAINT OF PAIN 12/11 REQUESTING FOR PAIN MEDICATION MORPHINE, PRN GIVEN ORDERED, VITAL SIGNS WITHIN NORMAL LIMITS. WILL CONTINUE TO MONITOR.
[2017-10-24] MEDS: VANCOMYCIN 1.25 GM in IV D5W 500 ML IV SCH ×3 (00:12→15:06)
--- NOTE | 2017-10-24 00:12 | NUR ---
RN MS NOTES VANCOMYCIN ORDERED INFUSING AT THIS TIME.
[2017-10-24] MEDS: IPRATROPIUM NEB FS 0.5 MG/2.5 ML AMPUL.NEB NEB PRN ×2 (00:46→17:04)
[2017-10-24] MEDS: ALBUTEROL HALF STRENGTH 1.25 MG/3 ML VIAL.NEB NEB PRN ×2 (00:46→17:04)
--- NOTE | 2017-10-24 03:00 | NUR ---
RN MS NOTES PATIENT COMPLAINT OF PAIN 8/10 TO ABDOMINAL AREA. AFTER GOING TO THE BATHROOM. REQUESTING FOR MORPHINE PRN. VITAL SIGNS TAKEN PRIOR TO ADMINISTRATION WNL NOTED BLOOD PRESSURE 127/72, HEART RATE 85, RESPIRATIONS 18 ON 02 VIA NC ON 2 LITERS. PRN MORPHINE ADMINISTERED ORDERED. WILL CONTINUE TO MONITOR.
[2017-10-24] MEDS: MORPHINE SULFATE INJ 2 MG/ML DISP.SYRIN IV PRN ×4 (03:01→15:06)
--- NOTE | 2017-10-24 06:23 | NUR ---
RN MS NOTES DISREGARD PT, ST AND WOUND CARE CONSULT-WRONG ENTRY
--- NOTE | 2017-10-24 07:24 | NUR ---
MS/RN Patient received Patient received from assistant shift supervisor. Sleeping soundly at this time, appears in no pain or respiratory distress. Call light within reach, bed in low setting, will continue to monitor and ensure safety.
--- NOTE | 2017-10-24 07:24 | NUR ---
RN MS NOTES PATIENT IN BED SLEEPING BUT EASILY AROUSABLE, RESPIRATIONS EVEN AND UNLABORED, WITH EQUAL RISE AND FALL OF CHEST. DENIES ANY PAIN OR DISCOMFORT AT THIS TIME, IV SITE TO LEFT HAND #22 G INTACT AND PATENT, NO REDNESS, NO INFILTRATION PRESENT. FLUIDS OFFERED TOLERATED. URINAL AT BEDSIDE, ALL NEEDS ATTENDED AT THIS TIME, REMAINS COMFORTABLE WILL CONTINUE TO MONITOR AND ENDORSE TO NEXT SHIFT.
[2017-10-24 07:30] LABS: BASOPHILS % (AUTO) 0.5 % (0.0-2.0); EOSINOPHILS % (AUTO) 5.7 % (0.0-6.0); HEMATOCRIT 32 % (39-51); HEMOGLOBIN 10.9 g/dL (13.5-17.5); LYMPHOCYTES # (AUTO) 1.9 /CMM (0.8-4.8); MEAN CORPUSCULAR HEMOGLOBIN 35 PG (26.0-33.0); MEAN CORPUSCULAR HGB CONC 34 g/dl (31.0-36.0); MEAN CORPUSCULAR VOLUME 104 fL (80-96); MONOCYTES % (AUTO) 14.2 % (2.0-12.0); NEUTROPHILS # (AUTO) 3.6 /CMM (1.8-8.9); NEUTROPHILS % (AUTO) 51.6 % (43.0-81.0); PLATELET COUNT (AUTO) 96 /CMM (150-450); RED BLOOD CELL COUNT(AUTO) 3.12 MIL/uL (4.5-6.0); WHITE BLOOD COUNT (AUTO) 6.9 K/uL (4.3-11.0)
[2017-10-24 07:44] LABS: CALCIUM, SERUM 7.5 mg/dL (8.5-10.1); CREATININE 0.6 mg/dL (0.6-1.3); POTASSIUM 3.6 mmol/L (3.5-5.1)
[2017-10-24 08:00] VITALS: BP 141/69
[2017-10-24 08:14] VITALS: BP 141/69
[2017-10-24] MEDS: PANTOPRAZOLE 40 MG VIAL IV SCH (08:33)
[2017-10-24] MEDS: FUROSEMIDE 40 MG/4 ML VIAL IV SCH (08:33)
[2017-10-24] MEDS: MUPIROCIN OINT 2% 22 GM TUBE SCH (08:34)
--- NOTE | 2017-10-24 09:12 | NUR ---
MS/RN [place] Vancomycin administered as ordered, no level ordered prior to administration.
[2017-10-24] MEDS: GUAIFENESIN/CODEINE 10 ML UDC PO PRN (10:00)
[2017-10-24 10:41] LABS: BAND % (MANUAL) 1 % (0.0-5.0); EOSINOPHILS % (MANUAL) 4 % (0-4); LYMPHOCYTES % (MANUAL) 31 % (16-48); MONOCYTES % (MANUAL) 5 % (0-11.0); NEUTROPHILS % (MANUAL) 59 (42-76)
--- NOTE | 2017-10-24 11:00 | NUR ---
MS/RN S/B Dr Mason Seen by Dr Mason - shoe caser to arrange home oxygen, when every thing set up, MD to be called and discharge order will be given.
--- NOTE | 2017-10-24 12:34 | NUR ---
MS/RN Medications All medications administered as ordered. Patient kept comfortable at all times.
--- NOTE | 2017-10-24 15:00 | NUR ---
MS/RN Oxygen delivery Oxygen cylinder delivered to patient's room for home use. Explanation of how to use and set up given by rep from delivery company. Per patient, full understanding.
--- NOTE | 2017-10-24 15:27 | NUR ---
MS/RN Blood in stool Called to bathroom by patient, stating that he had passed "a lot of blood". Upon looking, no evidence of blood in stool, but toilet water noted to be with dark red blood. Dr Mason informed, vital signs recorded and found to be within normal limits.
[2017-10-24 15:55] VITALS: BP 122/72
[2017-10-24 16:04] VITALS: BP 122/72
--- NOTE | 2017-10-24 16:51 | NUR ---
MS/RN Orders Per Dr Mason, patient is a high risk for bleeding due to recurrent ascites and liver issues. Stat H&H ordered along with blood pressure check, if both stable, can be discharged to home later this evening.
[2017-10-24 17:28] LABS: HEMOGLOBIN 11.7 g/dL (13.5-17.5)
--- NOTE | 2017-10-24 18:12 | NUR ---
MS/clinical biostatistics director All paperwork signed by patient, copy provided along with copy of medical record. Heplock and name bands removed. Education provided to patient about the importance of registering with a primary care doctor to receive follow up care. Educated as to the importance of picking up medications from [facility] as soon as possible and to take all medications as ordered. Informed of any possible side effects to lasix, patient encouraged to check blood pressure. Stated understanding of all of the above.
--- NOTE | 2017-10-24 18:53 | NUR ---
MS/vice president residential solar sales Patient discharged to home in stable condition. Taken to main lobby in wheelchair, taxi cab called.
== END 2017-10-24 18:57 | disposition home or self-care (01) ==
LOC: ER 03:41 → TELE 05:53 → MED 10-18 09:29
PROVIDERS: ADMIT Internal Medicine; ATTEND Internal Medicine
PROC: 0W993ZZ Drainage of Right Pleural Cavity, Percutaneous Approach (ICD-10-PCS; principal; 2017-10-17)
DX: K74.60 Unspecified cirrhosis of liver (principal); E43 Unspecified severe protein-calorie malnutrition; J90 Pleural effusion, not elsewhere classified; E87.2 Acidosis; R18.8 Other ascites; R78.81 Bacteremia; Z79.899 Other long term (current) drug therapy; J44.9 Chronic obstructive pulmonary disease, unspecified; Y90.9 Presence of alcohol in blood, level not specified; R73.9 Hyperglycemia, unspecified; K42.9 Umbilical hernia without obstruction or gangrene; Z83.3 Family history of diabetes mellitus; I10 Essential (primary) hypertension; E87.6 Hypokalemia; B19.20 Unspecified viral hepatitis C without hepatic coma; I35.1 Nonrheumatic aortic (valve) insufficiency; Z22.322 Carrier or suspected carrier of Methicillin resistant Staphylococcus aureus; Z72.0 Tobacco use
CPT/HCPCS: 36415; 36600; 71045-TC; 74018; 76700-TC; 76942-TC; 80048-TC; 80053-TC; 80076-TC; 80202-TC; 82040-TC; 82140-TC; 82746; 82803-TC; 83605-TC; 83690-TC; 83735-TC; 83880; 84484-TC; 85025-TC; 85027-TC; 85730-TC; 87040-TC; 87070-TC; 87081-TC; 89051-TC; 92611-TC; 93307-TC; 94799-TC; A4216; A4606; C9113; J0696; J1940; J1956; J2270; J3370; J3480; J3490; J7040; J7050; J7060; P9047; Z7610